=== PATIENT | female | born 2000 | race Caucasian/White ===

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

== ENCOUNTER 2022-05-15 14:00 | Emergency (ER) | payer OTHER, SELFPAY ==
[2022-05-15] VITALS (8 sets, daily range): BP systolic 122–153; BP diastolic 67–86; PULSE 56–69; RESP 16–20; TEMP 36.5; O2SAT 98–100
--- NOTE | ~2022-05-15 | XR_ITS ---
EXAMINATION: XR chest 1V portable Exam Date/Time: 05/15/2022 14:48 CDT HISTORY: covid +, sob Comparison: None available. RESULT: Lines, tubes, and devices: None. Lungs and pleura: Clear. Cardiomediastinal silhouette: Unremarkable. Other: No acute osseous or upper abdominal finding. IMPRESSION: No acute cardiopulmonary process. Reviewed, dictated and finalized at location K.
--- NOTE | 2022-05-15 14:28 | ECG_ITS ---
Measurements Intervals Only Rate: 48 P: 45 ME: 169 QRS: 63 QRSD: 85 T: 66 QT: 411 QTc: 368 Interpretive Statements SINUS BRADYCARDIA WITH SINUS ARRHYTHMIA NO PREVIOUS ECG AVAILABLE FOR COMPARISON Electronically Signed On 05-16-2022 11:33:56 CDT by Leah Trent M.D.
--- NOTE | 2022-05-15 14:43 | ED.WEAKNESS ---
HPI - Weakness General Chief complaint: Weakness Stated complaint: COVID +, SOB Time Seen by Provider: 05/15/22 14:28 Source: patient Mode of arrival: ambulatory Limitations: no limitations History of Present Illness HPI Narrative: This is a 22-year-old female that presents to the emergency department for generalized weakness. Reports she tested positive for COVID 2 days ago. She has been having sharp left-sided chest pain. Reports lightheadedness, cough, congestion, and shortness of breath. She is COVID vaccinated. Denies fevers. Related Data Allergies Allergy/AdvReac Type Severity Reaction Status Date / Time No Known Allergies Allergy Verified 05/15/22 16:02 Review of Systems Review of Systems: CONSTITUTIONAL: Denies fever ENT: Reports congestion CARDIOVASCULAR: Reports chest pain. Denies edema. RESPIRATORY: Reports cough and dyspnea. All systems reviewed & are unremarkable except as noted in HPI and below PMFSH Past Medical History Medical History Bronchitis Fracture of right wrist Strep throat Surgical History Surgical History No significant past surgical history Social History Social History Tobacco type: e-cigarettes/vaping Gender identity (if verbalized by the patient): Female Exam Narrative: GENERAL: Well-appearing, well-nourished, and in no acute distress. HEAD: Normocephalic, atraumatic. EYES: EOMI. CHEST: Clear to auscultation. No respiratory distress. No wheezes rales or rhonchi HEART: Regular rate and rhythm. No murmur heard. Normal peripheral pulses. ABDOMEN: Soft, normal active bowel sounds. EXTREMITIES: Normal range of motion. No edema. SKIN: Warm, dry, no rash. NEURO: No focal deficits. Alert and oriented x3. PSYCH: Normal mood and affect Course Vital Signs Vital signs: Vital Signs Temperature 97.7 F 05/15/22 14:04 Pulse Rate 66 05/15/22 14:04 Respiratory Rate 18 05/15/22 14:04 Blood Pressure 153/79 H 05/15/22 14:04 Pulse Oximetry 100 05/15/22 14:04 Oxygen Delivery Room Air 05/15/22 14:04 Temperature 97.7 F 05/15/22 14:04 Pulse Rate 56 L 05/15/22 16:19 Respiratory Rate 17 05/15/22 16:01 Blood Pressure 138/86 05/15/22 16:19 Pulse Oximetry 99 05/15/22 16:01 Oxygen Delivery Room Air 05/15/22 14:04 MDM - Weakness MDM Narrative Medical decision making narrative: Patient presents to the emergency department COVID-positive with generalized weakness and left-sided chest discomfort. She is afebrile and nontoxic-appearing. Lungs are clear on exam. Oxygen saturation has remained normal on room air. Metabolic panel without concerning findings. Lactic acid was initially elevated, this normalized with IV fluid administration. Likely due to mild dehydration. EKG shows sinus bradycardia. Patient's heart rate has largely been in the 60s. She is young and healthy. Looking at her past vital signs from her last visit it does not appear that bradycardia is new for her. Baseline troponin is negative. Her D-dimer is not elevated. Chest x-ray without acute cardiopulmonary abnormality. Patient able to ambulate without dropping her oxygen saturation. Patient will be started on Paxlovid. She is to follow-up with her primary care provider. She was given warnings to return to the ER Lab Data Attestation: I reviewed the patient's lab results. Result diagrams: 05/15/22 15:02 05/15/22 15:02 Labs: Lab Results 05/15/22 05/15/22 05/15/22 Range/Units 15:02 15:02 15:02 WBC 5.8 (4.5-10.0) K/mm3 RBC 4.56 (4.2-5.4) M/mm3 Hgb 14.5 (12.0-15.0) g/dL Hct 42.9 (37.0-47.0) % MCV 94.1 (80-100) fl MCH 31.8 (26-34) pg MCHC 33.8 (32-36) g/dl RDW 11.8 (11.5-14.5) % Plt Count 251 (150-375) k/mm3 MPV 9.1 (7.4-10.4)
[2022-05-15 15:11] LABS: Basophils Percent Auto 0.3 % (0.2-1.2); Eosinophils Percent Auto 0.7 % (0-4.4); Hematocrit 42.9 % (37.0-47.0); Hemoglobin 14.5 g/dL (12.0-15.0); Immature Granulocyte Absolute 0.01 K/mm3 (0.00-0.031); Immature Granulocyte Percent A 0.2 % (0-0.5); Lymphocytes Absolute Auto 2.14 K/mm3 (0.9-3.2); Lymphocytes Percent Auto 36.9 % (18.3-44.2); Mean Corpuscular HGB Conc 33.8 g/dl (32-36); Mean Corpuscular Hemoglobin 31.8 pg (26-34); Mean Corpuscular Volume 94.1 fl (80-100); Mean Platelet Volume 9.1 fl (7.4-10.4); Monocytes Absolute Auto 0.5 K/mm3 (0.1-0.6); Monocytes Percent Auto 9.3 % (2.6-8.5); Neutrophils Absolute Auto 3.1 K/mm3 (1.3-6.7); Neutrophils Percent Auto 52.6 % (45.5-73.1); Platelet Count Result 251 k/mm3 (150-375); Red Blood Count 4.56 M/mm3 (4.2-5.4); Red Cell Distribution Width 11.8 % (11.5-14.5); White Blood Count 5.8 K/mm3 (4.5-10.0)
[2022-05-15 15:18] LABS: Lactic Acid Reflex 2.2 mmol/L (0.7-2.0)
[2022-05-15 15:22] LABS: Alanine Aminotransferase 24 U/L (6-35); Alkaline Phosphatase 79 U/L (38-126); Anion Gap 8 mmol/L (8-16); Aspartate Amino Transferase 28 U/L (14-36); Bilirubin,Total 0.6 mg/dL (0.2-1.3); Blood Urea Nitrogen 10 mg/dL (7-17); CRP < 0.5 mg/dL (<1.0); Calcium 8.9 mg/dL (8.4-10.2); Carbon Dioxide 28 mmol/L (22-30); Chloride 108 mmol/L (98-107); Estimated CRCL calculation 103 ml/min; Estimated Glomerular Filt Rate > 60; Glucose 67 mg/dL (65-110); Lactate Dehydrogenase 149 U/L (120-246); Potassium 3.6 mmol/L (3.4-5.0); Prothrombin Time 13.2 Seconds (11.1-14.7); Sodium 144 mmol/L (137-145)
[2022-05-15 15:23] LABS: Partial Thromboplastin Time 28.5 SECONDS (22.3-36.8)
[2022-05-15 15:31] LABS: Troponin I < 0.012 ng/mL (0.000-0.034)
[2022-05-15] MEDS: ACETAMINOPHEN 500 MG TABLET 1000 MG PO (16:02)
[2022-05-15] MEDS: SODIUM CHLORIDE 0.9% IV 1,000 ML 999 ML IV CONT (16:03)
[2022-05-15 17:00] LABS: SARS-CoV-2 RNA PCR Positive
[2022-05-15 18:07] LABS: Reflex Lactic Acid Yes or No Add Lactic
[2022-05-15 18:14] LABS: Lactic Acid Reflex 0.8 mmol/L (0.7-2.0)
[2022-05-15] MEDS: ONDANSETRON HCL ODT 4 MG TABLET PO (18:34)
== END 2022-05-15 18:43 | disposition home or self-care (01) ==
PROVIDERS: Physician Assistant; Emergency Provider Emergency Medicine; PCP Obstetrics & Gynecology
DX: U07.1 COVID-19 (principal); F17.290 Nicotine dependence, other tobacco product, uncomplicated; R00.1 Bradycardia, unspecified
CPT/HCPCS: 36415; 71045; 80053; 82728; 83605; 83615; 84484; 85025; 85380; 85610; 85730; 86140; 93005; 96360; 99284; A9270; C9803; J7030; U0003; U0005

== ENCOUNTER 2023-04-12 12:16 | Outpatient (CLI) | payer OTHER, SELFPAY ==
--- NOTE | ~2023-04-12 | US_ITS ---
EXAMINATION: US OB /maternal detail DATE: 04/12/2023 14:57 INDICATION: Second trimester anatomic survey TECHNIQUE: Real-time ultrasound of the pelvis was performed. COMPARISON: None. FINDINGS: There is a single living fetus in breech presentation. The placenta is anterior. The measured cervica l length is 3.1 cm. heart rate is 150 beats per minute (bpm). cardiac activity and movement are noted. The amniotic fluid index is subjectively normal. There is limited evaluation of the spine, four-chamber heart, diaphragm, kidneys, bladder, and three- vessel cord due to position. The following anatomy was identified as normal: cord insertion stomach ventricles cisterna magna cerebellum The following biometric data were obtained: Biparietal diameter (BPD): 4.5 cm; head circumference (HC): 17.7 cm; abdominal circumference (AC): 16 .7 cm; femur length (FL): 3.2 cm. The head circumference to abdominal circumference ratio is greater than two standard deviations below the mean. These measurements are otherwise concordant. Estimated weight is 382 g +/- 57 g, which correlates with the 53rd percentile when 08/25/2023 is used as estimated date of delivery. As single measurements, these parameters are each equal to the following estimated gestational ages w ith ranges of +/- 2 standard deviations: BPD: 19 weeks 5 days +/- 1 weeks 5 days. HC: 20 weeks 1 days +/- 1 weeks 3 days. AC: 21 weeks 5 days +/- 2 weeks 0 days. FL: 20 weeks 0 days +/- 1 weeks 6 days. estimated gestational age based solely on measurements from this exam is 20 weeks 3 days +/- 1 weeks 3 days. IMPRESSION: 1. Single living fetus in breech presentation. 2. Estimated weight is 382 g +/- 57 g, which correlates with the 53rd percentile when 08/25/2023 is used as estimated date of delivery. 3. Incomplete anatomic survey. Limited evaluation of the spine, four-chamber heart, diaphragm, kidneys, bladder, and three-vessel cord due to position. 4. Head circumference to abdominal circumference ratio greater than two standard deviations below the mean. Reviewed, dictated and finalized at location L. IMPRESSION: 1. Single living fetus in breech presentation. 2. Estimated weight is 382 g +/- 57 g, which correlates with the 53rd per centile when 08/25/2023 is used as estimated date of delivery. 3. Incomplete anatomic survey. Limited evaluation of the spine, four-yoli florina heart, diaphragm, kidneys, bladder, and three-vessel cord due to posi tion. 4. Head circumference to abdominal circumference ratio greater than two standar d deviations below the mean.
== END 2023-04-12 12:17 | disposition home or self-care (01) ==
PROVIDERS: PCP Obstetrics & Gynecology; Visit Provider Obstetrics & Gynecology
DX: Z34.92 Encounter for supervision of normal pregnancy, unspecified, second trimester (principal); Z3A.20 20 weeks gestation of pregnancy
CPT/HCPCS: 76805

== ENCOUNTER 2024-02-28 11:03 | Emergency (ER) | payer OTHER, SELFPAY ==
[2024-02-28 11:16] VITALS: BP 120/71; PULSE 69; RESP 16; TEMP 36.6; O2SAT 100
--- NOTE | 2024-02-28 11:16 | ED.URI ---
HPI - URI/Sore Throat General Chief Complaint: Upper Respiratory Infection Stated Complaint: SORE THROAT Time Seen by Provider: 02/28/24 11:30 Source: patient and RN notes reviewed Mode of arrival: ambulatory Limitations: no limitations History of Present Illness HPI Narrative: 23-year-old female presents concern for sore throat for couple of days. She denies fever, body aches, chills, sweats. She denies nasal congestion or rhinorrhea. She denies taking any [id number]-[id number] medications. MD elicited complaint: sore throat Related Data Home Medications Medication Instructions Recorded Confirmed No Home Medications 02/28/24 02/28/24 Allergies Allergy/AdvReac Type Severity Reaction Status Date / Time No Known Allergies Allergy Verified 02/28/24 11:36 Review of Systems Review of Systems: CONSTITUTIONAL: Denies malaise, chills, sweats, or fever. EYES: Denies visual changes, redness, or discharge. ENT: Denies rhinorrhea, congestion, sinus pain, otalgia. Reports sore throat. CARDIOVASCULAR: Denies chest pain, palpitations, or edema. RESPIRATORY: Denies cough. Denies dyspnea. GASTROINTESTINAL: Denies abdominal pain, nausea, vomiting, diarrhea SKIN: Denies rash or itching. MUSCULOSKELETAL: Denies myalgia. NEUROLOGIC: Denies headache. All systems reviewed & are unremarkable except as noted in HPI and below PMFSH Past Medical History Medical History Bronchitis Fracture of right wrist Strep throat Surgical History Surgical History No significant past surgical history Social History Social History Tobacco type: e-cigarettes/vaping Living arrangements: with family Gender identity (if verbalized by the patient): Female Comments At time of signature, agree with nursing past medical, surgical, social and family history. There is no relevant family history pertinent to the presenting complaint Exam Narrative: GENERAL: Well-appearing, well-nourished, and in no acute distress. HEAD: Normocephalic EYES: PERRLA, conjunctivae clear ENT: Nares clear, turbinates edematous and erythematous, clear discharge. Mucous membranes moist. TM pearly nicholson with sharp light reflex bilaterally; no tragal tenderness. Oropharynx not erythematous without lesions. Tonsils not enlarged and without exudate, no drooling, no hoarseness, no trismus, uvula midline. NECK: Supple. No lymphadenopathy CHEST: Clear to auscultation, breath sounds equal. No wheezing, rhonchi, rales, or stridor. No respiratory distress, speaks in full sentences. HEART: Regular rate and rhythm. No murmur heard. SKIN: Warm, dry, no rash. NEURO: Alert and oriented x3. PSYCH: Normal mood and affect Course Course Emergency Course: Patient is aware of diagnosis, understands and agrees to treatment plan. Anticipatory guidance given. Patient agrees to follow-up as directed and is aware of reasons to seek care at the emergency department. Portions of this record may have been created with voice recognition software Level of Care: Express Care Visit Vital Signs Vital signs: Reviewed. MDM - URI/Sore Throat MDM Narrative Medical decision making narrative: Differential diagnosis considered: Brown virus, strep pharyngitis, allergic rhinitis, upper respiratory tract infection, sinusitis, rhinosinusitis, nasopharyngitis. viral pharyngitis, otitis media, otitis externa, pneumonia, bronchitis, viral cough syndrome, viral syndrome, and influenza. Exam findings show no acute concerns or changes; patient is non-toxic appearing and is in no distress. Patient is appropriate for outpatient treatment and follow-up. Lab Data Attestation: I reviewed the patient's lab results. Critical Care Time Critical Care Time Critical Care Time: No Discharge Plan Discharge Clinical Impression: Upper respirat
[2024-02-28 11:56] LABS: EDSTREPNEGPOS1 Presumptive Negative
== END 2024-02-28 11:48 | disposition home or self-care (01) ==
PROVIDERS: Emergency Provider Nurse Practitioner; PCP Obstetrics & Gynecology
DX: J06.9 Acute upper respiratory infection, unspecified (principal); F17.290 Nicotine dependence, other tobacco product, uncomplicated
CPT/HCPCS: 87081; 87880; 99213; G0463

== ENCOUNTER 2024-03-25 12:03 | Emergency (ER) | payer OTHER, SELFPAY ==
--- NOTE | ~2024-03-25 | XR_ITS ---
XR hip BI 2V w AP pelvis Ordering provider: Danisha Roger PA-C History: . fall down stairs, PT STATES PAIN IS MORE ON RT HIP . Comparison: None. FINDINGS: BONES: No acute fracture or dislocation. HIP JOINT SPACES: Normal. SACROILIAC JOINT SPACES/LUMBAR SPINE: The sacroiliac joint spaces are normal. Normal visualized lower lumbar spine. PUBIC SYMPHYSIS: Normal. SOFT TISSUES: Normal. IMPRESSION: No acute osseous abnormality of the bilateral hips and pelvis. Reviewed, dictated and finalized at location A.
--- NOTE | ~2024-03-25 | XR_ITS ---
XR sacrum coccyx min 2V Ordering provider: Danisha Roger PA-C History: . fall down stairs, PT STATES PAIN IN TAILBONE . Comparison: None. FINDINGS: BONES: No acute fracture or dislocation. JOINTS: The sacroiliac joint spaces are normal. SOFT TISSUES: Normal. IMPRESSION: No acute osseous abnormality sacrum. Reviewed, dictated and finalized at location A.
[2024-03-25 12:17] VITALS: BP 135/71; PULSE 74; RESP 15; TEMP 36.6; O2SAT 98
--- NOTE | 2024-03-25 13:22 | ED.FALL ---
HPI - Fall General Chief Complaint: Fall Stated Complaint: fall, coccyx pain Time Seen by Provider: 03/25/24 13:22 Source: patient Mode of arrival: ambulatory Limitations: no limitations History of Present Illness HPI Narrative: Patient is a 23 y/o female who presents to the ED with c/o fall. Patient reports she missed a step walking down her stairs last night and fell. She landed directly on her tailbone, then proceeded to slide down 3 more stairs. She complains of pain to her tailbone, worse with bending over. She has taken ibuprofen and tramadol at home with some relief. Denies any other injuries. Denies numbness, bowel or bladder incontinence, weakness. Related Data Allergies Allergy/AdvReac Type Severity Reaction Status Date / Time No Known Allergies Allergy Verified 03/25/24 13:46 Review of Systems Review of Systems: All systems reviewed & are unremarkable except as noted in HPI. All systems reviewed & are unremarkable except as noted in HPI and below PMFSH Past Medical History Medical History Bronchitis Fracture of right wrist Strep throat Surgical History Surgical History No significant past surgical history Social History Social History Tobacco type: e-cigarettes/vaping Living arrangements: with family Gender identity (if verbalized by the patient): Female Exam Narrative: GENERAL: Well appearing, well-nourished, non-toxic, in no acute distress. HEAD: Normocephalic, atraumatic. RESPIRATORY: Airway patent, respirations nonlabored. CARDIOVASCULAR: Regular rate and rhythm MUSCULOSKELETAL: Moves all extremities. No gross deformities. No significant midline lumbar spinal tenderness. Tenderness to palpation directly over coccyx/superior intergluteal cleft. No bruising to this area. Sensation intact. SKIN: Warm, dry, normal color. NEURO: A&O X3. Speech clear. Cranial nerves II-XII grossly intact. Steady gait. No ataxic movements. PSYCHIATRIC: Appropriate mood and affect. Normal interaction. Course Vital Signs Vital signs: Vital Signs Temperature 97.9 F 03/25/24 12:17 Pulse Rate 74 03/25/24 12:17 Respiratory Rate 15 03/25/24 12:17 Blood Pressure 135/71 03/25/24 12:17 Pulse Oximetry 98 03/25/24 12:17 Oxygen Delivery Room Air 03/25/24 12:17 Temperature 97.9 F 03/25/24 12:17 Pulse Rate 74 03/25/24 12:17 Respiratory Rate 15 03/25/24 12:17 Blood Pressure 135/71 03/25/24 12:17 Pulse Oximetry 98 03/25/24 12:17 Oxygen Delivery Room Air 03/25/24 12:17 MDM - Fall MDM Narrative Medical decision making narrative: Patient?s injury is consistent with musculoskeletal etiology. No signs of neurologic or vascular compromise on physical examination. Compartments are soft without signs of compartment syndrome. XR of hip/ pelvis, sacrum/ coccyx negative for traumatic findings. Pain is consistent with contusion. Patient is felt to be stable for discharge home and further outpatient management and treatment. advised patient to continue Tylenol/ ibuprofen, given return precautions. She agrees with plan. Discharged in stable condition. Medical Records Attestation: I reviewed the patient's medical records. Imaging Data Attestation: I personally reviewed and interpreted this imaging study as follows: Radiologist's impression: ITS Impressions Hip/Pelvis X-Ray 03/25/24 14:03 IMPRESSION: No acute osseous abnormality of the bilateral hips and pelvis. Sacrum and Coccyx X-Ray 03/25/24 14:04 IMPRESSION: No acute osseous abnormality sacrum. Discharge Plan Discharge Clinical Impression: Coccyx contusion Qualifiers: Encounter type: initial encounter Qualified Code(s): S30.0XXA - Contusion of lower back and pelvis, initial encounter Fall down
== END 2024-03-25 14:36 | disposition home or self-care (01) ==
LOC: ANHED 14:21
PROVIDERS: Emergency Provider Physician Assistant; PCP Obstetrics & Gynecology
DX: S30.0XXA Contusion of lower back and pelvis, initial encounter (principal); W10.8XXA Fall (on) (from) other stairs and steps, initial encounter
CPT/HCPCS: 72220; 73521; 99284

== ENCOUNTER 2024-07-18 12:14 | Emergency (ER) | payer OTHER, SELFPAY ==
[2024-07-18 12:27] VITALS: BP 122/62; PULSE 109; RESP 16; TEMP 36.2; O2SAT 98
--- NOTE | 2024-07-18 12:29 | ED_ITS ---
HPI - Ear Problem General Chief complaint: Ear Stated complaint: Ear Pain/Cold Symptoms Time Seen by Provider: 07/18/24 12:29 Source: patient Mode of arrival: ambulatory Limitations: no limitations History of Present Illness HPI Narrative: 24-year-old female presents with complaint of nasal congestion, sinus pressure, postnasal drainage for 5 days. Patient taking an [id number] sinus medication to treat symptoms. Reports right ear pain for 3-4 days. Afebrile. Right ear pain getting progressively worse. All systems reviewed and negative except as noted above. Related Data Home Medications ?Medication ?Instructions ?Recorded ?Confirmed ?Last Taken ?Type sertraline 50 mg tablet mg 07/18/24 Unknown History Allergies Allergy/AdvReac Type Severity Reaction Status Date / Time No Known Allergies Allergy Verified 07/18/24 12:26 Review of Systems Review of Systems: CONSTITUTIONAL: Denies fever, chills, or sweats. EYES: Denies visual changes, redness, or discharge. ENT: Reports rhinorrhea, congestion, sore throat, right ear pain CARDIOVASCULAR: Denies chest pain, palpitations, or edema. RESPIRATORY: Denies cough or dyspnea. GASTROINTESTINAL: Denies abdominal pain, nausea, vomiting, or diarrhea. GENITOURINARY: Denies dysuria or hematuria. SKIN: Denies rash or itching. MUSCULOSKELETAL: Denies back pain, joint pain, or myalgia. NEUROLOGIC: Denies headache, numbness, or weakness. PSYCHIATRIC: Denies anxiety or depression. All other systems reviewed are negative, except as documented in HPI. PMFSH Past Medical History Medical History Bronchitis Fracture of right wrist Strep throat Surgical History Surgical History No significant past surgical history Social History Social History Tobacco type: e-cigarettes/vaping Living arrangements: with family Gender identity (if verbalized by the patient): Female Comments At time of signature, agree with nursing past medical, surgical, social and family history. There is no relevant family history pertinent to the presenting complaint. Exam Narrative: GENERAL: This is a well-nourished, well-developed patient, in no apparent distress. HEAD: normocephalic, atraumatic. EYES: PERRL. Sclera clear/white. Vision is grossly intact. EARS: External ears normal, auditory canals clear and without drainage, erythema, bulging, bubbling to right TM without perforation. Left TM is normal. Hearing grossly intact. NOSE: External nose normal with moderate congestion, clear nasal drainage, erythema and swelling to bilateral nares. THROAT: Mucous membranes moist, erythema postnasal drainage NECK: Neck supple, non-tender without lymphadenopathy, masses or thyromegaly. CARDIOVASCULAR: Regular rate and rhythm without murmurs, gallops, or rubs. RESPIRATORY: Clear to auscultation. Breath sounds equal bilaterally. No wheezes, rales, or rhonchi. SKIN: warm, Dry, intact with no suspicious lesions or rash, good texture and turgor. NEURO: awake, alert, and oriented to person, place and time. There were no obvious focal neurologic abnormalities. EXTREMITIES: No joint tenderness, effusion, or edema noted. Course Course Level of Care: Express Care Visit Vital Signs Vital signs: Vital Signs Temperature 36.2 C L 07/18/24 12:27 Pulse Rate 109 H 07/18/24 12:27 Respiratory Rate 16 07/18/24 12:27 Blood Pressure 122/62 07/18/24 12:27 Pulse Oximetry 98 07/18/24 12:27 Temperature 36.2 C L 07/18/24 12:27 Pulse Rate 109 H 07/18/24 12:27 Respiratory Rate 16 07/18/24 12:27 Blood Pressure 122/62 07/18/24 12:27 Pulse Oximetry 98 07/18/24 12:27 Reviewed Medical Decision Making MDM Narrative Medical decision making narrative: Will treat patient with antibiotic for right otitis media and recommend she continue [id number] medications to treat viral sinusitis. Patient is nontoxic. Patient is aware of diagnosis, understands and agrees to treatment plan. Anticipatory guidance given. Patient agrees to follow-up as directed and is aware of reasons to seek care at the emergency department. Portions of this record may have been created with voice recognition software Vital Signs Vital Signs: Vital Signs Temperature 36.2 C L 07/18/24 12:27 Pulse Rate 109 H 07/18/24 12:27 Respiratory Rate 16 07/18/24 12:27 Blood Pressure 122/62 07/18/24 12:27 Pulse Oximetry 98 07/18/24 12:27 Temperature 36.2 C L 07/18/24 12:27 Pulse Rate 109 H 07/18/24 12:27 Respiratory Rate 16 07/18/24 12:27 Blood Pressure 122/62 07/18/24 12:27 Pulse Oximetry 98 07/18/24 12:27 Discharge Plan Discharge Clinical Impression: Acute right otitis media, Acute viral sinusitis Patient Disposition: Home, Self-Care Condition: Stable Instructions: Antibiotic Form, Ear Infection (ED) Additional Instructions: Take antibiotic as prescribed until gone. Continue taking [id number]-[id number] medication to treat her symptoms such as DayQuil NyQuil cold and Sinus. Take ibuprofen every 6-8 hours as needed for pain and fever. Drink at least 64 oz of water a day. Follow-up with your primary care physician if symptoms are not improving. Patient Language: Belarusian Prescriptions: New amoxicillin 875 mg tablet 875 mg PO Q12H 10 Days Qty: 20 0RF fluticasone propionate [Flonase Allergy Relief] 50 mcg/actuation spray,suspension 1 spray intranasal BID Qty: 16 0RF Rx Instructions: administer into each nostril No Action sertraline 50 mg tablet lidocaine 5 % adhesive patch,medicated 1 patch topical DAILY Qty: 15 0RF Rx Instructions: leave on most painful area for up to 12 hrs Follow-up/Referrals: PHYSICIAN,ASSOCIATE DATA SCIENTIST [Primary Care Provider] - Time of Disposition: 12:35
== END 2024-07-18 12:49 | disposition home or self-care (01) ==
PROVIDERS: Emergency Provider Nurse Practitioner Family
DX: H66.91 Otitis media, unspecified, right ear (principal); J01.90 Acute sinusitis, unspecified; F17.290 Nicotine dependence, other tobacco product, uncomplicated
CPT/HCPCS: 99213; G0463

== ENCOUNTER 2024-07-21 14:24 | Emergency (ER) | payer OTHER, SELFPAY ==
[2024-07-21 15:15] VITALS: BP 123/68; PULSE 92; RESP 16; TEMP 37.1; O2SAT 98
--- NOTE | 2024-07-21 16:08 | ED.URI ---
HPI - URI/Sore Throat General Chief Complaint: Ear Stated Complaint: EARACHE Time Seen by Provider: 07/21/24 15:52 Source: patient, RN notes reviewed and old records reviewed Mode of arrival: ambulatory Limitations: no limitations History of Present Illness HPI Narrative: Patient presents today complaining right ear pain and difficulty hearing, congestion, cough. She was seen at [facility] on 07/17/2024 and placed on amoxicillin for otitis media. Denies fever or shortness of breath. She has tried Advil cold and Sinus without relief. Related Data Home Medications ?Medication ?Instructions ?Recorded ?Confirmed ?Last Taken ?Type sertraline 50 mg tablet mg 07/18/24 Unknown History Allergies Allergy/AdvReac Type Severity Reaction Status Date / Time No Known Allergies Allergy Verified 07/21/24 15:15 Review of Systems Review of Systems: CONSTITUTIONAL: Denies body aches, fever, chills, or sweats. EYES: Denies visual changes, redness, or discharge. ENT: Denies rhinorrhea, sore throat. + congestion, right ear pain and muffling CARDIOVASCULAR: Denies chest pain, palpitations, or edema. RESPIRATORY: Denies dyspnea.+ cough GASTROINTESTINAL: Denies abdominal pain, nausea, vomiting, or diarrhea. GENITOURINARY: Denies dysuria or hematuria. SKIN: Denies rash, itching, or wounds. MUSCULOSKELETAL: Denies back pain, joint pain, or myalgia. NEUROLOGIC: Denies headache, numbness, tingling, or weakness. PSYCH: Denies depression or anxiety. [facility] Past Medical History Medical History Strep throat Bronchitis Fracture of right wrist Surgical History Surgical History No significant past surgical history Social History Social History Tobacco type: e-cigarettes/vaping Living arrangements: with family Gender identity (if verbalized by the patient): Female Comments At time of signature, I have reviewed and agree with nursing past medical, surgical, social and family history unless otherwise noted. Please see nursing chart for further information. There is no relevant family history pertinent to the presenting complaint Exam Narrative: GENERAL: Well-appearing, well-nourished, and in no acute distress. HEAD: Normocephalic, atraumatic. EYES: EOMI. No redness or drainage. Conjunctivae normal. ENT: Mucous membranes pink and moist. Nares congested. No rhinorrhea. Left TM normal. Right TM erythematous and bulging. Throat normal. Uvula midline. NECK: Normal AROM. Supple. No lymphadenopathy. CHEST: No respiratory distress. Clear to auscultation. HEART: Regular rate and rhythm. No murmur appreciated. EXTREMITIES: Normal range of motion. No edema. SKIN: Warm, dry, no rash. Capillary refill normal. Normal skin turgor. NEURO: No focal deficits. Alert and oriented x3. Gait steady. PSYCH: Normal affect. No signs of depression or anxiety. Course Course Level of Care: Express Care Visit Vital Signs Vital signs: Vital Signs Temperature 98.7 F 07/21/24 15:15 Pulse Rate 92 07/21/24 15:15 Respiratory Rate 16 07/21/24 15:15 Blood Pressure 123/68 07/21/24 15:15 Pulse Oximetry 98 07/21/24 15:15 Temperature 98.7 F 07/21/24 15:15 Pulse Rate 92 07/21/24 15:15 Respiratory Rate 16 07/21/24 15:15 Blood Pressure 123/68 07/21/24 15:15 Pulse Oximetry 98 07/21/24 15:15 Reviewed MDM - URI/Sore Throat MDM Narrative Medical decision making narrative: Patient's antibiotics will be switched from amoxicillin to Augmentin. Recommend starting Flonase and taking with the Advil cold and Sinus. Anticipatory guidance given. Differential Diagnosis Differential diagnosis: Likely upper respiratory infection, otitis media, viral infection and bronchitis Critical Care Time Critical Care Time Critical Care Time: No Discharge Plan Discharge Clinical Impression: Otitis media, right Qualifiers: Otitis media type: suppurative Chronicity: acute Recurrence: non-recurrent Spontaneous tympanic membrane rupture: without spontaneous rupture Qualified Code(s): H66.001 - Acute suppurative otitis media without spontaneous rupture of ear drum, right ear Patient Disposition: Home, Self-Care Condition: Stable Instructions: Antibiotic Form, Ear Infection (ED) Additional Instructions: Please stop the amoxicillin and start the Augmentin as prescribed. You may consider adding Flonase. Take Tylenol or ibuprofen for pain. Follow-up with your PCP with any additional concerns. Your blood pressure was elevated above 120/80 today at Urgent Care. This puts you above the threshold for follow up. Please schedule a followup visit with your personal physician as soon as possible, for further evaluation and treatment. Even blood pressure exceeding 120/80 may indicate pre-hypertension. Patient Language: Yoruba Prescriptions: New amoxicillin-pot clavulanate 875-125 mg tablet 1 tablet PO Q12H 7 Days Qty: 14 0RF No Action sertraline 50 mg tablet amoxicillin 875 mg tablet 875 mg PO Q12H 10 Days Qty: 20 0RF fluticasone propionate [Flonase Allergy Relief] 50 mcg/actuation spray,suspension 1 spray intranasal BID Qty: 16 0RF Rx Instructions: administer into each nostril lidocaine 5 % adhesive patch,medicated 1 patch topical DAILY Qty: 15 0RF Rx Instructions: leave on most painful area for up to 12 hrs Follow-up/Referrals: Gorge,Avel Link MD [Primary Care Provider] - Time of Disposition: 16:11
== END 2024-07-21 16:15 | disposition home or self-care (01) ==
PROVIDERS: Emergency Provider Nurse Practitioner; PCP Obstetrics & Gynecology
DX: H66.001 Acute suppurative otitis media without spontaneous rupture of ear drum, right ear (principal); F17.290 Nicotine dependence, other tobacco product, uncomplicated
CPT/HCPCS: 99203; G0463